=== PATIENT | female | born 1975 | race Caucasian/White ===

== ENCOUNTER 2019-05-29 07:15 | Inpatient (IN) | payer OTHER ==
[~2019-05-29] VITALS: Ht 157.5 cm; Wt 83.9 kg
[2019-06-04] MEDS ORDERED: GABAPENTIN600 MG PO (06:58)
[2019-06-04] MEDS ORDERED: IBUPROFEN800 MG PO (06:59)
== END 2019-06-04 11:08 | disposition home or self-care (01) | DRG 742 ==
LOC: EDSTATUS 07:15 → ADM 07:15 → OB/GYN 06-02 05:20 → O/R 06-02 05:20 → OB/GYN 06-02 07:00 → SURH 06-02 07:15 → OB/GYN 06-02 07:15
PROVIDERS: ADMIT Obstetrics & Gynecology
PROC: 0UT90ZZ Resection of Uterus, Open Approach (ICD-10-PCS; principal; 2019-06-02 07:00)
DX: N93.8 Other specified abnormal uterine and vaginal bleeding (principal); D62 Acute posthemorrhagic anemia; D25.1 Intramural leiomyoma of uterus; D25.2 Subserosal leiomyoma of uterus; N72 Inflammatory disease of cervix uteri; N80.0 Endometriosis of uterus